=== PATIENT | male | born 1965 | race Caucasian/White ===

== ENCOUNTER 2017-02-07 11:12 | Day surgery (SDC) | payer BC ==
[~2017-02-07 11:12] MED LIST: CORE25TA PO; DIGO50SO PO; KCL20 PO; LASI20TA PO; LISI10 PO; OMPR20CCR PO; RIVA20 PO
[2017-02-07] MEDS ORDERED: PROPOFOL 200 MG/20 ML AMP IV ONE (12:00)
[2017-02-07] MEDS ORDERED: METOPROLOL TARTRATE 25 MG TAB PO PRN (12:15)
[2017-02-07] MEDS ORDERED: CHLORHEXIDINE GLUCONATE 2 % 1 PACK (2 CLOTHS) TOPICAL PRN (12:15)
[2017-02-07] MEDS ORDERED: SODIUM CHLORID 0.9% 500 ML IV PRN (12:15)
[2017-02-07] MEDS ORDERED: INSULIN HUMAN REGULAR 1,000 UNITS/10 ML VIAL SQ PRN (12:15)
[2017-02-07] MEDS ORDERED: POVIDONE IODINE 5% (ANTISEPSIS KIT) 4 APPLICATIONS EACH NARE PRN (12:15)
[2017-02-07] MEDS ORDERED: LACTATED RINGER'S 1000 ML IV PRN (12:15)
[2017-02-07] MEDS ORDERED: XARE20TA PO (12:16)
[2017-02-07] MEDS ORDERED: DIGO0.259 PO (12:16)
[2017-02-07] MEDS ORDERED: FURO20TA PO (12:16)
[2017-02-07] MEDS ORDERED: CORE25TA PO (12:16)
[2017-02-07] MEDS ORDERED: POTA-163 PO (12:16)
[2017-02-07] MEDS ORDERED: LISI10TA3 PO (12:16)
--- NOTE | 2017-02-07 16:17 | MR ---
cc: ALISSA GUTIÉRREZ MD DATE: 02/07/2017 INDICATIONS Atrial fibrillation. PROCEDURE PERFORMED DC cardioversion. DETAILS OF THE PROCEDURE After the patient was sedated by anesthesia, a 200 joule biphasic shock was delivered and converted the patient to sinus rhythm. The patient remained stable and was discharged home in stable condition. DIAGNOSIS Successful cardioversion of atrial fibrillation. DISPOSITION Mr. Marrufo will continue his current medical program including anticoagulation with Xarelto. I will see him back for followup in our office after discharge. Alissa Gutiérrez MD OQ/PAUL /1:46 PM /4:03 PM
--- NOTE | 2017-02-08 07:21 | EKG ---
Date Performed: 02/07/2017 Time Performed: 11:44:18 PTAGE: 51 years EKG: Atrial fibrillation. rSr'(V1) - probable normal variant Inferior T wave changes are nonspec ific Compared to previous tracing there is rhythm change from Sinus rhythm to atrial fibrillation. Clinical correlation is recommended Abnormal ECG PREVIOUS TRACING : 01/06/2016 14.12 DOCTOR: Cahrles Taylor Interpretating Date/Time 02/08/2017 07:20:39
== END 2017-02-07 14:52 | disposition home or self-care (01) ==
LOC: HDOC 11:12 → HDIC 11:17 → HDOC 14:52
PROVIDERS: ATTEND Internal Medicine Interventional Cardiology
DX: I48.91 Unspecified atrial fibrillation (principal); I10 Essential (primary) hypertension
CPT/HCPCS: 92960; 93005